=== PATIENT | male | born 1965 | race Two or more races ===

== ENCOUNTER 2016-04-08 15:20 | Outpatient (CLI) | payer MEDICARE, OTHER | END 2016-04-08 23:59 | disposition home or self-care (01) | LOC: WOU 15:20 | PROVIDERS: ATTEND Specialist | DX: S91.311A Laceration without foreign body, right foot, initial encounter (principal); W18.42XA Slipping, tripping and stumbling without falling due to stepping into hole or opening, initial encounter; Y93.01 Activity, walking, marching and hiking; Y92.480 Sidewalk as the place of occurrence of the external cause | CPT/HCPCS: A6209; A6402; G0463 ==

== ENCOUNTER 2016-04-15 13:11 | Outpatient (CLI) | payer MEDICARE, OTHER | END 2016-04-15 23:59 | disposition home or self-care (01) | LOC: WOU 13:11 | PROVIDERS: ATTEND Specialist | DX: S91.311D Laceration without foreign body, right foot, subsequent encounter (principal); W22.8XXD Striking against or struck by other objects, subsequent encounter | CPT/HCPCS: A6209; A6402; G0463 ==

== ENCOUNTER 2017-01-27 10:50 | Outpatient (CLI) | payer MEDICARE, OTHER | END 2017-01-27 23:59 | disposition home or self-care (01) | LOC: WOU 10:50 | PROVIDERS: ATTEND Specialist | DX: S61.011A Laceration without foreign body of right thumb without damage to nail, initial encounter (principal); S61.210A Laceration without foreign body of right index finger without damage to nail, initial encounter; X58.XXXA Exposure to other specified factors, initial encounter; Y92.89 Other specified places as the place of occurrence of the external cause; L98.491 Non-pressure chronic ulcer of skin of other sites limited to breakdown of skin | CPT/HCPCS: 87070; 87075; 87077; 87186; A6402; G0463 ==

== ENCOUNTER 2017-02-03 09:09 | Outpatient (CLI) | payer MEDICARE, OTHER | END 2017-02-03 23:59 | disposition home or self-care (01) | LOC: WOU 09:09 | PROVIDERS: ATTEND Specialist | DX: L98.491 Non-pressure chronic ulcer of skin of other sites limited to breakdown of skin (principal); S61.210D Laceration without foreign body of right index finger without damage to nail, subsequent encounter; S61.111D Laceration without foreign body of right thumb with damage to nail, subsequent encounter; X58.XXXD Exposure to other specified factors, subsequent encounter | CPT/HCPCS: A6402; G0463 ==

== ENCOUNTER 2018-08-31 10:38 | Outpatient (CLI) | payer MEDICARE, OTHER | END 2018-08-31 23:59 | disposition home or self-care (01) | LOC: WOU 10:38 | PROVIDERS: ATTEND Specialist | DX: S91.312A Laceration without foreign body, left foot, initial encounter (principal); W22.8XXA Striking against or struck by other objects, initial encounter; Y93.89 Activity, other specified; Y92.89 Other specified places as the place of occurrence of the external cause; G47.33 Obstructive sleep apnea (adult) (pediatric); M79.672 Pain in left foot | CPT/HCPCS: 73660; A6402; G0463 ==

== ENCOUNTER 2019-10-16 16:19 | Emergency (ER) | payer MEDICARE, OTHER ==
[~2019-10-16] VITALS: Ht 182.9 cm; Wt 113.4 kg
[2019-10-16 16:46] VITALS: BP 134/78
== END 2019-10-16 17:39 | disposition home or self-care (01) ==
LOC: ER 16:25
DX: M54.42 Lumbago with sciatica, left side (principal); F32.9 Major depressive disorder, single episode, unspecified; I10 Essential (primary) hypertension; F98.8 Other specified behavioral and emotional disorders with onset usually occurring in childhood and adolescence; F17.200 Nicotine dependence, unspecified, uncomplicated

== ENCOUNTER 2020-10-31 19:52 | Emergency (ER) | payer MEDICARE, OTHER ==
[~2020-10-31] VITALS: Ht 182.9 cm; Wt 110.7 kg
--- NOTE | 2020-10-31 20:42 | NUR ---
PT AAOX4. BIBSELF C/O FATIGUE AND CHILLS X2 DAYS. 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 VSS. NO ACUTE DISTRESS NOTED. AWAITING ER MD FOR EVAL AND ORDERS.
[2020-10-31] MEDS ORDERED: ACETAMINOPHEN ES 500 MG TABLET PO ONE (21:00)
[2020-10-31] MEDS ORDERED: ONDANSETRON HCL/PF 4 MG/2 ML VIAL IVP ONE (21:00)
[2020-10-31] MEDS ORDERED: ACETAMINOPHEN ES 500 MG TABLET ONE (21:18)
[2020-10-31] MEDS ORDERED: ONDANSETRON HCL/PF 4 MG/2 ML VIAL ONE (21:18)
[2020-10-31 21:35] LABS: BASOPHILS % (AUTO) 0.4 % (0.0-2.0); HEMATOCRIT 46 % (39-51); HEMOGLOBIN 15.8 g/dL (13.5-17.5); LYMPHOCYTES # (AUTO) 0.5 K/uL (0.8-4.8); LYMPHOCYTES % (AUTO) 11.2 % (20.0-44.0); MEAN CORPUSCULAR HGB CONC 34 g/dl (31.0-36.0); MEAN CORPUSCULAR VOLUME 91 fL (80-96); MONOCYTES # (AUTO) 0.4 K/uL (0.1-1.30); MONOCYTES % (AUTO) 9.7 % (2.0-12.0); NEUTROPHILS # (AUTO) 3.5 K/uL (1.8-8.9); NEUTROPHILS % (AUTO) 78.7 % (43.0-81.0); PLATELET COUNT (AUTO) 192 K/uL (150-450); WHITE BLOOD COUNT (AUTO) 4.5 K/uL (4.3-11.0)
[2020-10-31 21:43] LABS: BILIRUBIN,URINE SMALL (NEGATIVE); COLOR,URINE YELLOW (YELLOW); LEUKOCYTE ESTERASE ,URINE NEGATIVE (NEGATIVE); NITRITE, URINE NEGATIVE (NEGATIVE); PROTEIN,URINE 30 mg/dl (NEGATIVE); UGLUCOSE NEGATIVE (NEGATIVE)
[2020-10-31 21:50] LABS: CALCIUM, SERUM 8.1 mg/dL (8.5-10.1); CREATININE 1.1 mg/dL (0.6-1.3); POTASSIUM 4.5 mmol/L (3.5-5.1)
[2020-10-31 22:01] LABS: BACTERIA,URINE None seen /HPF (None Seen); SQUAMOUS EPITHELIAL CELL,UR 0-2 /HPF (None Seen); WBC,URINE 0-2 /HPF (0-3)
[2020-10-31] MEDS ORDERED: ONDA4TAB5 PO (22:38)
[2020-10-31] MEDS ORDERED: AZIT250T13 PO (22:38)
[2020-10-31] MEDS ORDERED: ACET-2605 PO (22:38)
[2020-10-31] MEDS ORDERED: AZITHROMYCIN 250 MG TABLET PO ONE (23:00)
[2020-10-31] MEDS ORDERED: AZITHROMYCIN 250 MG TABLET ONE (23:05)
[2020-10-31 23:15] VITALS: BP 150/70
--- NOTE | 2020-10-31 23:15 | NUR ---
Patient discharged to home in stable condition. Written and verbal after care instructions given. Patient verbalizes understanding of instruction. RX GIVEN
== END 2020-10-31 23:17 | disposition home or self-care (01) ==
LOC: ER 20:01
DX: J18.9 Pneumonia, unspecified organism (principal); Z20.822 Contact with and (suspected) exposure to COVID-19; R00.0 Tachycardia, unspecified; F32.9 Major depressive disorder, single episode, unspecified; F98.8 Other specified behavioral and emotional disorders with onset usually occurring in childhood and adolescence; I10 Essential (primary) hypertension
CPT/HCPCS: 36415; 71045; 80048; 81001; 85025; 87426; 87804; 96374; 99284; J2405; C9803